=== PATIENT | male | born 1970 | race Caucasian/White ===

== ENCOUNTER 2018-11-14 00:22 | Observation (INO) | payer OTHER ==
--- NOTE | 2018-11-14 01:17 | ED ---
Abdominal Pain/Male - HPI Summary HPI Summary: This pt is a 48 y/o male presenting to [facility] via EMS from [facility] c/o worsening abd pain x3 days. Patient reports associated symptoms of constipation and vomiting. He denies any fever. Pt states he went to [facility] where he had blood work and a CT. Patient was then transferred to [facility] ED for admission. PMHx: herniated disc from a past injury. He does not take any medications on a daily basis. Patient notes last time he took Vicodin and Percocet he had an itchy reaction. Pt admits to occasional alcohol but denies alcohol and drug use. - History of Current Complaint Chief Complaint: EDAbdPain Stated Complaint: ABD PAIN PER EMS Time Seen by Provider: 11/14/18 00:45 Hx Obtained From: Patient Onset/Duration: Lasting Days, Still Present Timing: Lasting Days Severity Currently: Moderate Pain Intensity: 2 Pain Scale Used: 0-10 Numeric Location: Other - left sided abd Radiates: No Character: Other: - aching Aggravating Factor(s): Nothing Alleviating Factor(s): Nothing Associated Signs And Symptoms: Positive: Constipation, Nausea, Vomiting. Negative: Fever, Diarrhea - Allergies/Home Medications Allergies/Adverse Reactions: Allergies Allergy/AdvReac Type Severity Reaction Status Date / Time Opioids - Morphine Analogues Allergy Rash Verified 11/14/18 01:05 Home Medications: Home Medications NK [No Home Medications Reported] 11/14/18 [History Confirmed 11/14/18] PMH/Surg Hx/FS Hx/Imm Hx Endocrine/Hematology History: Denies: Hx Diabetes Cardiovascular History: Denies: Hx Hypertension Musculoskeletal History: Reports: Other Musculoskeletal History - Herniated disc Infectious Disease History: No Infectious Disease History: Denies: Traveled Outside the [place] in Last 30 Days - Family History Family History: Denies FHx of Tara illness - Social History Alcohol Use: Occasionally Substance Use Type: Reports: None Smoking Status (MU): Never Smoked Tobacco Review of Systems - ROS Summary Review of Systems Summary: Home Medications Medication Instructions Recorded Confirmed Type NK [No Home Medications Reported] 11/14/18 11/14/18 History Negative: Fever Gastrointestinal: Other - POSITIVE: constipation Positive: Abdominal Pain, Vomiting All Other Systems Reviewed And Are Negative: Yes Physical Exam - Summary Physical Exam Summary: General: Well-developed, Well-nourished male. No acute distress. HEENT: Normocephalic, Atraumatic. Eyes: Conjuctiva normal, PERRL. Ears: TMs within normal limits. Nares: (-) discharge, (-) erythema. Oropharynx: Clear, mucous membranes moist, (-) exudates. Neck: Soft, FROM, (-) lymphadenopathy, (-) thyromegaly, (-) JVD. Cardiovascular: Normal sinus rhythm, (-) murmur. Lungs: Clear to auscultation bilaterally (-) wheezes, (-) rales, (-) rhonchi. Abdomen: Soft, tenderness to the left mid abdomen, non-distended, (-) organomegaly, normal bowel sounds. Back: (-) CVA tenderness Extremities: No edema. Skin: Warm, dry, (-) rash. Neuro: Alert and oriented x3, no focal deficits. Psychiatric: Mood normal, affect normal. Triage Information Reviewed: Yes Vital Signs On Initial Exam: Initial Vitals Temp Pulse Resp BP Pulse Ox 98.6 F 72 18 146/81 98 11/14/18 00:27 11/14/18 00:27 11/14/18 00:27 11/14/18 00:27 11/14/18 00:27 Vital Signs Reviewed: Yes Diagnostics - Vital Signs Vital Signs Temp Pulse Resp BP Pulse Ox 11/14/18 00:28 78 21 146/81 97 11/14/18 00:27 98.6 F 74 14 146/81 96 - Laboratory Lab Statement: Any lab studies that have been ordered have been reviewed, and results considered in the medical decision making process. Abdominal Pain Male Course/Dx - Course Assessment/Plan: Pt is a 48 y/o male presenting to [facility] via EMS from [facility] c/o worsening abd pain x3 days. Patient reports associated symptoms of constipation and vomiting. He denies any fever. Pt states he went to [facility] where he had blood work and a CT. Patient was then transferred to [facility] for admission after consulting with Dr. Epstein, GI. CT from [facility] showed obstruction. On exam, pt has tenderness to the left mid abdomen. Discussed the case with Dr. Vargas, hospitalist, who accepted the pt for admission. - Diagnoses Provider Diagnoses: Abdominal pain - Provider Notifications Discussed Care Of Patient With: Sheila Vargas - hospitalist Time Discussed With Above Provider: 01:08 Instructed by Provider To: Admit As Inpatient Discharge ED - Sign-Out/Discharge Documenting (check all that apply): Patient Departure - Admit to [facility] Patient Received Moderate/Deep Sedation with Procedure: No - Discharge Plan Condition: Stable Disposition: ADMITTED TO [facility] - Billing Disposition and Condition Condition: STABLE Disposition: Admitted to [facility] - Attestation Statements Document Initiated by Scribe: Yes Documenting Scribe: Korin Moore Provider For Whom Charissa is Documenting (Include Credential): Dr. Shauna Mackey MD Scribe Attestation: Korin Quick, scribed for Dr. Shauna Mackey MD on 11/14/18 at 0514. Scribe Documentation Reviewed: Yes Provider Attestation: The documentation as recorded by the jamesibKorin tejada accurately reflects the service I personally performed and the decisions made by me, Dr. Shauna Mackey MD Status of Scribe Document: Viewed
[2018-11-14] MEDS ORDERED: Ondansetron INJ* 2 MG/ML VIAL IV PRN (02:01)
[2018-11-14] MEDS ORDERED: HYDROmorphone INJ* 0.5 MG/0.5 ML SYRINGE IV PRN (02:07)
[2018-11-14] MEDS ORDERED: NS 0.9% 1000 ML** 1,000 ML IV SCH (02:15)
[2018-11-14] MEDS: HYDROmorphone INJ1* 1 MG/ML SYRINGE IV PRN ×4 (03:32→15:53)
--- NOTE | 2018-11-14 04:12 | HP ---
CC: Dr. Brown * HISTORY AND PHYSICAL: DATE OF ADMISSION: 11/14/18 PRIMARY CARE PROVIDER: Dr. Brown in [place], [place]. CHIEF COMPLAINT: Constipation. HISTORY OF PRESENT ILLNESS: Mr. Rey is a 48-year-old male who presented to [facility] with complaints of severe abdominal pain and constipation x3 days. The patient states that he has developed left lower quadrant as well as left mid and umbilical pain approximately 3 days ago. He states the pain has been constant. He describes it as sharp. He has not had any fevers though he states that he has felt cold over the last several days. He has had associated nausea and mild vomiting. He has not eaten anything over the last couple of days due to the abdominal pain. The patient states that he has been trying to have bowel movements over the last several days; however, has been unable to do so. He states his last normal bowel movement was Saturday , 11/11/18. When he has attempted to go, he is passing only a very little amount of loose stool. He did take Dulcolax on 11/13/18 to try to help have a BM. PAST MEDICAL HISTORY: 1. Chronic neck pain related to trauma incident. 2. Migraines. PAST SURGICAL HISTORY: None. MEDICATIONS: P.r.n. Dulcolax. ALLERGIES: VICODIN caused itching. FAMILY HISTORY: Mom is living, she is healthy. Dad is , he had cancer. SOCIAL HISTORY: The patient smokes approximately a third of pack cigarettes per day. He smokes since the age of 16. He does not drink alcohol. 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 He is . He has 3 children. His is his healthcare proxy. REVIEW OF SYSTEMS: A complete 11-system review of systems is obtained. Pertinent positives and negatives are as per HPI and otherwise negative. PHYSICAL EXAMINATION GENERAL: The patient is a well-developed, middle-aged male, seen sitting up in the stretcher, appearing to be in no acute distress. VITAL SIGNS: Blood pressure 146/81, pulse 79, respirations 21, temp 98.6, O2 sat 97% on room air. HEENT: Pupils are equal and round. Extraocular muscles are intact. Oropharynx is clear. Oral mucosa is moist. There is no submandibular, cervical , or supraclavicular adenopathy. Thyroid is not enlarged. No thyroid nodules noted. PULMONARY: Lungs are clear to auscultation bilaterally. CARDIAC: Normal S1, S2. Regular rate and rhythm. I do not appreciate any murmurs. There is no lower extremity edema. ABDOMEN: Bowel sounds present. Abdomen is flat, soft. He is tender to palpation in the mid left abdominal region, left lower quadrant, and around the umbilicus. MUSCULOSKELETAL: There is no cyanosis or clubbing of the digits. There is full active range of motion of all 4 extremities. SKIN: Warm and dry. There are no rashes. NEURO: Cranial nerves II through XII are grossly intact. Sensation is intact to light touch throughout. Strength is 5/5 and symmetric to both upper and lower extremities bilaterally. PSYCH: The patient is alert. He is oriented x3. Affect appears appropriate. LABORATORY DATA AND DIAGNOSTIC STUDIES: Labs are obtained at [facility], WBC 9.9, hemoglobin 16.5, hematocrit 47, platelets 229. Sodium 137, potassium 3.5, chloride 98, CO2 28, BUN 12, creatinine 1.3, albumin 4.0. Bilirubin 0.5, AST 24, ALT 28, alk phos 71, amylase 34. CT abdomen and pelvis obtained at [facility] revealed no hydronephrosis or large nephrolithiasis. There is no small bowel obstruction. No significant colonic diverticula. There is opacity of stool with fluid filled colon and air- fluid levels, which may be related to recent history of diarrhea. Recommend clinical correlation. Collapsed movement of the rectosigmoid is suggestion of mild colonic wall thickening and possible creeping fat. This can be seen in the setting of inflammatory bowel disease such as ulcerative colitis or Crohn's disease. ASSESSMENT AND PLAN: Mr. Rey is a 48-year-old male with no significant past medical history who presents to the emergency room with complaints of severe abdominal pain and constipation x3 days. 1. Abdominal pain and constipation. At this point, the etiology is unclear. There may be some thickening of the rectosigmoid colon. Perhaps there is colitis leading to his constipation and pain. There are no signs of infection and so I am going to hold off an antibiotic therapy. I will give IV fluids, normal saline at 100 mL per hour. He will have p.r.n. Dilaudid for severe pain. The patient will be seen by Dr. Epstein in the morning for likely sigmoidoscopy. 2. DVT prophylaxis: According to the Adult Thrombosis Prophylaxis Risk Factor Assessment Guide, the patient has a total risk factor score of 1, making him low risk. Ambulation will be utilized for DVT prophylaxis. 3. Code status is full. TIME SPENT: 40 minutes was spent admitting this patient. [id number]/[facility] #: [id number] MTDD
[2018-11-14 11:38] LABS: ABS Basophils 0.1 10^3/ul (0-0.2); ABS Lymphocytes 1.5 10^3/ul (1.0-4.8); ABS Monocytes 1.2 10^3/ul (0-0.8); ABS Neutrophils 6.7 10^3/ul (1.5-7.7); Eosinophil % 0.3 %; Hematocrit 40 % (42-52); Hemoglobin 13.9 g/dL (14.0-18.0); Lymphocyte % 15.5 %; Mean Corpuscular HGB Conc 35 g/dL (31-36); Mean Corpuscular Hemoglobin 31 pg (27-31); Mean Corpuscular Volume 90 fL (80-94); Mean Platelet Volume 7.9 fL (7.4-10.4); Platelet Count 185 10^3/uL (150-450); Red Blood Count 4.44 10^6 /uL (4.18-5.48); Red Cell Distribution Width 14 % (10-15); White Blood Count 9.4 10^3/uL (3.5-10.8)
--- NOTE | 2018-11-14 12:17 | PN ---
Subjective Date of Service: 11/14/18 Interval History: Patient seen and examined at bedside. Reports diffuse abdominal tenderness, worse at LLQ Has been passing blood (no stool) this morning. Dilaudid is helpful, lasts for 2-2.5 hours before pain returns. Denies fever/chills, CP, SOB, n/v. Did have some hot flashes a few minutes ago. Reports he is thirsty and frustrated over not being able to drink. Family History: Unchanged from Admission Social History: Unchanged from Admission Past Medical History: Unchanged from Admission Objective Active Medications: Hydromorphone HCl (Dilaudid Inj1s*) 0.5 mg IV Q3H PRN PRN Reason: PAIN - SEVERE Last Admin: 11/14/18 11:34 Dose: 0.5 mg Sodium Chloride (Ns 0.9% 1000 Ml) 1,000 mls @ 100 mls/hr IV PER RATE LUL Last Admin: 11/14/18 03:37 Dose: 100 mls/hr Ondansetron HCl (Zofran Inj*) 4 mg IV Q6H PRN PRN Reason: NAUSEA Vital Signs - 8 hr 11/14/18 11/14/18 11/14/18 05:00 07:15 07:58 Temperature 98 F Pulse Rate 62 Respiratory 16 18 20 Rate Blood Pressure 103/50 (mmHg) O2 Sat by Pulse 97 Oximetry 11/14/18 11/14/18 11/14/18 08:00 10:35 11:34 Temperature Pulse Rate Respiratory 18 18 18 Rate Blood Pressure (mmHg) O2 Sat by Pulse Oximetry Oxygen Devices in Use Now: None Appearance: Middle aged male, lying in bed, NAD Eyes: No Scleral Icterus, PERRLA Ears/Nose/Mouth/Throat: Clear Oropharnyx, Mucous Membranes Moist Neck: NL Appearance and Movements; NL JVP Respiratory: Symmetrical Chest Expansion and Respiratory Effort, Clear to Auscultation Cardiovascular: NL Sounds; No Murmurs; No JVD, RRR Abdominal: - - + BS, tender to midabdomen, epigastrum, LLQ Extremities: No Edema, No Clubbing, Cyanosis Skin: No Rash or Ulcers Neurological: Alert and Oriented x 3, NL Muscle Strength and Tone Lines/Tubes/Other Access: Clean, Dry and Intact Peripheral IV Result Diagrams: 11/14/18 11:27 Assess/Plan/Problems-Billing Assessment: Mr. Rey is a 48 yo male with PMH of migraines and chronic neck pain who presented to [facility] on the evening of 11/13/18 with abd pain and constipation x 3 days; was a subsequent transfer to [facility] for further GI evaluation. - Patient Problems (1) Abdominal pain Code(s): R10.9 - UNSPECIFIED ABDOMINAL PAIN Comment: Unclear etiology ?colitis vs diverticulitis Obtain repeat CBC this AM, add CRP Awaiting GI evaluation Continue prn hydromorphone, changed to q3h for better pain management Discussed need to remain NPO in order to rest the bowel and allow for procedure later today. (2) Constipation Code(s): K59.00 - CONSTIPATION, UNSPECIFIED Comment: Was taking Dulcolax at home Will hold on further laxatives/bowel regimen until seen by GI (3) DVT prophylaxis Code(s): Z29.9 - ENCOUNTER FOR PROPHYLACTIC MEASURES, UNSPECIFIED Comment: He is ambulatory in the room (4) Full code status Code(s): Z78.9 - OTHER SPECIFIED HEALTH STATUS Status and Disposition: OBV admit. Attending: Dick Saravia
[2018-11-14 13:48] VITALS: BP 104/61
--- NOTE | 2018-11-14 16:47 | CONS ---
GASTROENTEROLOGY CONSULT: DATE: 11/14/18 CONSULTING PHYSICIAN: Sheila Vargas DO HISTORY: This 48-year-old man began experiencing left-sided abdominal discomfort the afternoon of 11/11/18. It did not seem too disturbing and he was observing it. There was more pain on 11/12/18. He thought he was constipated and could not go. He decided to come to the [facility] the evening of 11/13/18. He was afebrile and had a normal white count. CT scan with IV, but not oral contrast questioned thickening of the sigmoid colon. There was no free air or fluid. Transferred images were reviewed in the radiology system. It had been decided not to give antibiotics as there was no definitive signs of sepsis. He at 10 a.m. during my initial conversation continued to say that he felt a pressure there and could not really have a bowel movement. He is passing small amounts of blood. His history was reviewed. He states he has never had anything like this before. He eats a general diet and says there has been no change in his weight over the last year. His usual bowel habit is every morning fairly readily and without the need for laxatives. He states that pain meds tore up the stomach when he was taking them 10 years ago. He references a head trauma many years ago. At this point, I was called away to the operating room for a case. Coming back after that at 3:30, the patient's nurse informed me that he was quite upset and distraught. Entering the room, his and son were with him. He was sitting up and swearing repeatedly that he had had it and what had been promised was not being delivered. An explanation was made that there was still a plan to evaluate him and probably do a sigmoidoscopy. He repeated his displeasure in the same language. He just said he had to get the (explicative) out of here and he would go elsewhere if things continued. He repeated it a couple of more times. His supported that decision, feeling that the lack of definitive studies was intolerable. He had been afebrile and a repeat CBC had shown a white count of 9.4, though his CRP was slightly elevated. He had also been telling nurses that he was hungry. The willingness to continue workup was communicated to the hospitalist service, though it seemed as though at this point the patient would not generate any therapeutic relationship and having him evaluated at another facility may be a reasonable option. [id number]/[facility] #: [id number] GABBY
--- NOTE | 2018-11-14 21:56 | DS ---
CC: Dr. Brown * MEDICINE DISCHARGE SUMMARY: DATE OF ADMISSION: 11/14/18 DATE OF DISCHARGE: 11/14/18 PROVIDER: Darcy Oliver NP. PRIMARY CARE PHYSICIAN: Dr. Brown in [place], [place]. ATTENDING PHYSICIAN: Dr. Dick Saravia * (dictated by Darcy Oliver NP). PRIMARY DISCHARGE DIAGNOSIS: Abdominal pain, question of suspected colitis versus diverticulitis. HOSPITAL COURSE AND STAY: For further details, please refer to the H and P provided by Dr. Vargas on admission. In summary, this is a 48-year-old male, who presented to the [facility] last evening with complaints of severe abdominal pain and constipation x3 days, pain localized to the left lower quadrant as well as mid abdominal and umbilical areas, onset approximately 3 days ago. It was a constant sharp pain. He also reported difficulty moving his bowels, with his last bowel movement being on Saturday, . He reports this morning that he was passing blood but no stool. CT scan had confirmed that there was stool and fluid throughout the colon, and there was a concern for mild colonic wall thickening and possible creeping fat. He was transferred to [facility] for GI evaluation. Etiology of the patient's symptoms remains unclear. and it was recommended that he see GI with a possibility of a flex sigmoidoscopy. He was treated with IV fluids and IV analgesia. He was requiring p.r.n. IV hydromorphone q.3 hours to manage his pain. He was seen by this provider in the morning and plan of care was reviewed, which included GI evaluation today with likely sigmoidoscopy later on the day, pending GI consult and availability. Per nursing, the patient became very irate that he had to wait for long periods. He had expressed anger over having to wait for over 16 hours to see a GI specialist and have his procedure done and was frustrated that he has not been able to eat or drink anything for 3 days. I did attempt to go up and speak with the patient, but he had already left the unit at 1610. His , Juliet Rey, was still in the room with their son. I did discuss concerns for the patient leaving at this time, especially in light of significant pain and requirement of pain medications. He also had reporting passing blood still this morning, although his H and H and white blood cell count is fairly stable. He did have a noted CRP of 18 this morning. We discussed the risks of leaving, which include continued GI bleeding, worsening pain, nausea, vomiting or diarrhea. There is a risk of further obstruction, developing infection including diverticulitis, worsening infection, bowel perforation, septic shock, and should any of the aforementioned continue and worsen, potential if concern for serious infection or acute abdomen. She verbalized understanding of these conditions. She states that they would go to [facility] if they had any further concern. I did advise her to encourage her to avoid heavy foods and to gently try liquids, if he insists on trying food. Ideally, these should be clear liquids which include water, juice, Gatorade, tea. He should to avoid carbonation, he should avoid any high residue food. I did advise for clear liquids only if he was insistent on trying foods in order to have the least amount of irritation for his bowel and to advance as tolerated. They have been advised to go to a medical facility for any concerns for fever, chills, chest pain, difficulty breathing, abdominal pain, abdominal tightening, further bloody stools, weakness or other concerns. She verbalized understanding. She declined to sign the AMA form but we did verbally review it. She did write her name at the bottom as agreeing that I did verbally review the form with her, although she declined to fill out and signed the top part that states that they realize liability by leaving the facility against medical advise. Mr. Rey has left [place] on 11/14/18 just after 4 p.m. Medical status unknown as he was not present on the floor when I arrived. DARCY OLIVER, TOWER CLIMBER [id number]/[facility] #: [id number] GABBY
== END 2018-11-14 15:00 | disposition left against medical advice (07) ==
LOC: ED 00:22 → MED 02:01
PROVIDERS: ADMIT Hospitalist; ATTEND Internal Medicine
DX: K59.00 Constipation, unspecified (principal); R11.2 Nausea with vomiting, unspecified; M54.2 Cervicalgia; G43.909 Migraine, unspecified, not intractable, without status migrainosus; F17.210 Nicotine dependence, cigarettes, uncomplicated
CPT/HCPCS: 36415; 85025; 86140; 99283; G0378; J1170